=== PATIENT | male | born 1980 | race Caucasian/White ===

== ENCOUNTER 2017-06-23 12:27 | Emergency (ER) | payer BC ==
[~2017-06-23] VITALS: Wt 95.7 kg
[2017-06-23 12:28] VITALS: Wt 95.7 kg
[2017-06-23] MEDS ORDERED: SOD CHLORIDE 0.9% 1,000 ML IV STA (13:01)
[2017-06-23] MEDS ORDERED: LORAZEPAM 2 MG INJ ONE (13:37)
[2017-06-23 14:00] VITALS: PULSE 85; RESP 20
[2017-06-23] MEDS ORDERED: LORAZEPAM 2 MG INJ IM ONE (14:00)
--- NOTE | 2017-06-23 14:18 | ERD ---
ER Documentation Chief Complaint Chief Complaint used heroin x2 today, feels he's going to "", slouched over resp to tact HPI This is a 37-year-old male, reportedly a previous , previous traumatic injury to the left ankle status post multiple surgeries with chronic swelling and pain who is presenting with concerns of polysubstance abuse status post a breakup with his girlfriend. The patient reports that he started using drugs 3 weeks ago after he broke up with his girlfriend. He reports using IV heroin, and has multiple track cortez. He reports methamphetamine use. He also reports oxycodone abuse. He describes a desire to escape, but does not endorse suicidal or homicidal ideations. He does not want to kill himself. He does not want to kill anyone else. He just feels depressed and wants to feel better. He does not want any resources at this time. He just wants benzodiazepines. He does not want an IV. He just wants to get Ativan IM. He also wants a prescription for oxycodone for chronic pain as well as a prescription for Librium. He used the specific names for these medicines. The patient denies feeling sick recently with cold or flulike symptoms, but he does feel sick to his stomach. The patient denies fever or chills. The patient has had no headache or vision changes. The patient does not endorse neck or back pain. The patient denies lightheadedness or dizziness. The patient has had no chest pain or shortness of breath or trouble breathing. The patient endorses nausea but no vomiting. The patient denies abdominal pain or changes to bowel movements or urination. The patient has had no focal deficits. The patient has had no weakness or numbness or tingling to the face or extremities. ROS All systems reviewed and are negative except as per history of present illness. Medications Home Meds Unable to Obtain Active Prescriptions or Reported Meds Allergies Allergies: Coded Allergies: Unable to Assess (Verified Allergy, Severe, 06/23/17) PMhx/Soc Medical and Surgical Hx: Unable to obtain History of Surgery: Yes (Left ankle surgery) Anesthesia Reaction: No Hx Neurological Disorder: No Hx Respiratory Disorders: No Hx Cardiac Disorders: No Hx Psychiatric Problems: No Hx Miscellaneous Medical Probl: No Hx Alcohol Use: Yes (2 bottles vodka/ day) Hx Substance Use: Yes (Heroin, methamphetamine, oxycodone) Hx Tobacco Use: No Smoking Status: Former smoker FmHx Family History: No diabetes Physical Exam Vitals Vital Signs Date Time Temp Pulse Resp B/P Pulse Ox O2 Delivery O2 Flow Rate FiO2 06/23/17 12:28 97.0 108 20 127/90 95 Physical Exam Const: No apparent distress, well-developed, well-nourished Head: Normocephalic, Atraumatic Eyes: Normal Conjunctiva. Extraocular movements intact. Pupils equal, round and reactive to light ENT: Normal External Ears, Nose and Mouth. Neck: Full range of motion. No meningismus. Resp: Clear to auscultation bilaterally, No wheezes, rales or rhonchi Cardio: Regular rate and rhythm. No murmurs, rubs or gallops Abd: Soft, non tender, non distended. Normal bowel sounds Skin: No petechiae or rashes Back: No midline tenderness. No CVA tenderness Ext: No cyanosis. Well-healed left ankle surgical scar with edema but no erythema or induration or fluctuance. Neur: Awake and alert, oriented 4. Cranial nerves intact. No facial droop. Normal strength, sensation and coordination. Psych: Anxious, agitated Results 24 hrs Current Medications Medications (Trade) Dose Ordered Sig/Thomas Route PRN Reason Start Time Stop Time Status Last Admin Dose Admin Sodium Chloride (NS) 1,000 ml @ 1,000 mls/hr Q1H STAT IV 06/23/17 13:01 06/23/17 14:00 DC Lorazepam (Ativan) 1 mg ONCE ONCE IM 06/23/17 14:00 06/23/17 14:01 DC 06/23/17 13:41 Lorazepam (Ativan) 2 mg STK-MED ONCE .ROUTE 06/23/17 13:37 06/23/17 13:38 DC Procedures/MDM I recommended a toxicologic workup for this patient. The patient is ambulatory without issue. He has normal vital signs. He does not appear to be an alcohol or benzodiazepine or heroin withdrawal. He does not appear psychotic. He does not endorse any symptoms of suicidal or homicidal ideations. LABS The patient refused an IV or a blood draw. The patient did provide a urine sample, but wished to leave AGAINST MEDICAL ADVICE prior to return of his UDS. Urinalysis was negative for hematuria or infection. TREATMENT/DISPOSITION I ordered 1 mg of IM Ativan to help with the patient's anxiety. After he received this, he wished to leave AGAINST MEDICAL ADVICE. He again asked for prescriptions for narcotics as well as Librium. I told the patient that I would not prescribe these medications given his history and his desire to leave without having a workup completed. I am concerned of drug-seeking behavior.The patient understands that he may return to the emergency department for reevaluation at any time. I do feel at this time that the patient is safe to leave the emergency department. I did offer the patient resources for rehabilitation of his polysubstance abuse. He declined this well. The patient is instructed to follow-up with his primary care physician in 2-3 days. The patient will be given strict precautions with which to return to the emergency department. The patient's blood pressure was elevated at greater than 120/80 while in the emergency department. The patient was otherwise stable with no evidence of hypertensive urgency or emergency or end organ damage. The patient does not require admission for blood pressure control. I have discussed with the patient the risks of hypertension. I have advised the patient to follow up with the primary care physician for outpatient monitoring and treatment for hypertension in 2-3 days. I have instructed the patient to return to the ER for any new or worsening symptoms including chest pain, shortness of breath, headache, blurred vision, confusion, nausea, vomiting or LOC. Disclaimer: Inadvertent spelling and grammatical errors are likely due to EHR/ dictation software use and do not reflect on the overall quality of patient care. Note that the electronic time recorded on this note does not necessarily reflect the actual time of the patient encounter. Departure Diagnosis: Primary Impression: Polysubstance abuse Additional Impressions: Heroin abuse Methamphetamine abuse Drug-seeking behavior Condition: RASHID Mazariegos MD Jun 23, 2017 14:18
--- NOTE | 2017-06-23 14:24 | RADRPT ---
PROCEDURE: XR Ankle CLINICAL INDICATION: Left ankle pain TECHNIQUE: and swelling of the left ankle COMPARISON: None available FINDINGS: Compression plates involving the distal tibia, distal fibula, and talus. The soft tissues are unrem arkable. No evidence of acute fracture. Findings compatible with prior fracture including periosteal and adriana ical thickening as well as ossifications in the lower tibiofibular space. The ankle mortise is par tially obscured by compression plate. IMPRESSION: 1. Postoperative changes. No evidence of acute fracture. Compare to prior corresponding imaging studies. RPTAT: TT Physician Remi Date Time Electronically viewed and signed by Physician Remi on 06/23/2017 14:23 LORI/
[2017-06-23 14:26] LABS: ADD UMIC NO; UR ASCORBIC ACID NEGATIVE (NEGATIVE); UR BILIRUBIN (Dip) NEGATIVE (NEGATIVE); UR BLOOD (Dip) NEGATIVE (NEGATIVE); UR CLARITY CLEAR (CLEAR); UR COLOR STRAW (YELLOW); UR GLUCOSE (Dip) NEGATIVE (NEGATIVE); UR KETONES (Dip) NEGATIVE (NEGATIVE); UR LEUKOCYTE ESTERASE (Dip) NEGATIVE Leu/ul (NEGATIVE); UR NITRITE (Dip) NEGATIVE (NEGATIVE); UR SPECIFIC GRAVITY (Dip) 1.009 (1.003-1.030); UR TOTAL PROTEIN (Dip) NEGATIVE (NEGATIVE); UR UROBILINOGEN (Dip) NEGATIVE (NEGATIVE)
[2017-06-23 14:49] LABS: BARBITURATES Negative (NEGATIVE); OPIATES Negative (NEGATIVE)
[2017-06-23 14:52] LABS: BENZODIAZEPINES Positive (NEGATIVE); CANNABINOIDS Positive (NEGATIVE); COCAINE Negative (NEGATIVE)
== END 2017-06-23 14:45 | disposition left against medical advice (07) ==
LOC: E/R 12:27
DX: F11.10 Opioid abuse, uncomplicated (principal); F15.10 Other stimulant abuse, uncomplicated; Z76.5 Malingerer [conscious simulation]; Z87.891 Personal history of nicotine dependence
CPT/HCPCS: 73600; 80307; 81003; 96372; 99284; J2060; J7030